=== PATIENT | female | born 1995 | race American Indian/Alaskan Native ===

== ENCOUNTER 2017-04-27 15:04 | Emergency (ER) | payer SELFPAY | END 2017-04-27 16:02 | disposition left against medical advice (07) | LOC: ED 15:04 | DX: R11.10 Vomiting, unspecified (principal); Z53.21 Procedure and treatment not carried out due to patient leaving prior to being seen by health care provider ==

== ENCOUNTER 2017-08-28 15:47 | Emergency (ER) | payer OTHER ==
[2017-08-28 15:53] VITALS: BP 139/87
[2017-08-28] MEDS ORDERED: ZOFRAN ODT ONE (15:57)
[2017-08-28] MEDS ORDERED: ZOFRAN ODT PO ONE (17:00)
--- NOTE | 2017-08-28 18:08 | Emergency Department Report ---
Vomiting/Diarrhea - HPI Chief Complaint: Abdominal Pain Stated Complaint: CP/ABDOMINAL PAIN/VOMITING Time Seen by Provider: 08/28/17 17:51 Duration: 2 Days Severity: mild Nausea/Vomiting Severity: Mild Diarrhea Severity: Mild Pain Location: Generalized Pain Severity: Mild Symptoms: Yes Watery Diarrhea, Yes Able to Tolerate Fluids, No Bloody diarrhea, No Fever, No Recent Unusual Foods, No Recent Untreated Water, No Recent use of Antibiotics, No Family w/ Similar Symptoms, No Contacts w/ Similar Symptoms, No Rash, No Hematuria, No Recent URI Symptoms ED Review of Systems ROS: Stated complaint: CP/ABDOMINAL PAIN/VOMITING Other details as noted in HPI Comment: All other systems reviewed and negative ED Past Medical Hx - Past Medical History Previous Medical History?: No - Surgical History Past Surgical History?: Yes Additional Surgical History: Gastric sleeve surgery in Mar 2017 - Social History Smoking Status: Never Smoker Substance Use Type: None - Medications Home Medications: Home Medications Medication Instructions Recorded Confirmed Last Taken Type Ondansetron [Zofran Odt] 4 mg PO Q8HR #10 tab.rapdis 08/28/17 Unknown Rx Vomiting Diarrhea Exam - Exam General: Vital signs noted. No distress. Alert and acting appropriately. HEENT: Yes Moist Mucous Membranes, No Pharyngeal Erythema, No Pharyngeal Exudates, No Rhinorrhea, No Conjuctival Injection, No Frontal Tenderness, No Maxillary Tenderness Neck: No Adenopathy, No Rigidity Lungs: Yes Clear Lung Sounds, Yes Good Air Exchange, No Wheezes, No Stridor, No Cough, No Nasal Flaring, No Retractions, No Use of Accessory Muscles Heart exam: Regular: Yes, Murmur: No, Tachycardia: No Abdomen: Tenderness: No, Peritoneal Signs: No, Distention: No, Hyperactive Bowel sounds: No Skin exam: Rash: No, Edema: No, Normal turgor: Yes Neurologic: Alert and oriented, no deficits. Musculoskeletal: Unremarkable. ED Course Vital Signs 08/28/17 15:49 Temperature 98.7 F Pulse Rate 86 Respiratory 16 Rate Blood Pressure 139/87 O2 Sat by Pulse 100 Oximetry ED Medical Decision Making - Medical Decision Making She is a 22-year-old female presented with nausea vomiting diarrhea. Patient states diarrhea is improved today she is still nauseous upon arrival. Patient received Zofran while she is waiting in and does feel better. Patient has no abdominal tenderness on palpation or rebound no guarding the patient has a simple viral gastroenteritis and will be discharged home at this time. Critical care attestation.: If time is entered above; I have spent that time in minutes in the direct care of this critically ill patient, excluding procedure time. ED Disposition Clinical Impression: Viral gastroenteritis Disposition: DC-01 TO HOME OR SELFCARE Is pt being admited?: No Does the pt Need Aspirin: No Condition: Stable Instructions: Gastroenteritis (ED) Prescriptions: Ondansetron [Zofran Odt] 4 mg PO Q8HR #10 tab.rapdis Referrals: PRIMARY CARE, [Primary Care Provider] - 3-5 Days
== END 2017-08-28 18:25 | disposition home or self-care (01) ==
LOC: ED 15:47
DX: A08.39 Other viral enteritis (principal)
CPT/HCPCS: 99282; Q0162